=== PATIENT | male | born 1970 | race African-American/Black ===

== ENCOUNTER 2017-03-07 09:56 | Emergency (ER) | payer OTHER ==
[~2017-03-07] VITALS: Ht 177.8 cm; Wt 56.7 kg
[2017-03-07 10:17] LABS: HEMATOCRIT 35.4 % (38.0-50.0); MCH 28.5 PG (29.0-34.0); MCHC 33.3 G/DL (30.0-36.0); MCV 85.5 FL (86-99); MEAN PLAT.VOLUME 9.6 uM^3 (9.0-12.4); PLATELET COUNT 311 K/uL (156-360); RBC DIS.WIDTH-SD 37.5 % (39-53); RED BLOOD COUNT 4.14 M/uL (4.00-5.50); WHITE BLOOD COUNT 5.7 K/uL (4.1-10.2)
[2017-03-07 10:25] LABS: CHLORIDE 109 mEq/L (99-109); INTER. NORMALIZED RATIO 1.3; PROTHROMBIN TIME 13.9 SEC (10.2-12.9); SODIUM 140 mEq/L (136-147)
[2017-03-07 10:27] LABS: GLUCOSE 89 mg/dL (70-99)
[2017-03-07 10:28] LABS: ANION GAP 5 MEQ/L (2-14)
[2017-03-07 10:30] LABS: GFR ESTIMATE (CALCULATED) > 59 mL/min/
[2017-03-07 10:31] LABS: UREA NITROGEN (BUN) 13 mg/dL (9-23)
[2017-03-07 10:37] LABS: TROP-I INTERPRETATION NEGATIVE; TROPONIN-I < 0.01 ng/mL (0.0-0.30)
[2017-03-07 12:06] VITALS: BP 116/71
== END 2017-03-07 12:12 ==
LOC: EME 09:56
PROVIDERS: Emergency Medicine
DX: R07.89 Other chest pain (principal); J45.909 Unspecified asthma, uncomplicated; Z87.891 Personal history of nicotine dependence
CPT/HCPCS: 71010; 80048; 84484; 85027; 85610; 93005; 99281; 99285; J1100; J7644